=== PATIENT | female | born 1990 | race Caucasian/White ===

== ENCOUNTER 2022-08-04 09:57 | Inpatient (IN) ==
[2022-08-04] MEDS ORDERED: miSOPROStoL 200 MCG TABLET RECTAL PRN (10:23)
[2022-08-04] MEDS ORDERED: OXYTOCIN/LR 20 UNIT/1,000 ML BAG IV ONE ×2 (10:23→20:55)
[2022-08-04] MEDS ORDERED: CARBOPROST TROMETHAMINE 250 MCG/ML AMP IM PRN (10:23)
[2022-08-04] MEDS ORDERED: METHYLERGONOVINE 0.2 MG/1 ML AMP IM PRN (10:23)
[2022-08-04] MEDS ORDERED: TRANEXAMIC ACID 1,000 MG in SODIUM CHLORIDE 0.9% 100 ML IV PRN (10:23)
[2022-08-04] MEDS ORDERED: ONDANSETRON 4 MG/2 ML VIAL IV PRN ×2 (10:23→20:55)
[2022-08-04] MEDS ORDERED: LACTATED RINGERS 1,000 ML IV ONE (10:23)
[2022-08-04] MEDS ORDERED: BUTORPHANOL 2 MG/ML VIAL IV PRN (10:23)
[2022-08-04 11:18] LABS: Basophils % 0.3 % (0.0-0.8); Eosinophils # 0.1 10*3/uL (0.0-0.87); Eosinophils % 0.9 % (0.00-10.9); Hematocrit 36.9 VOL% (35.7-47.0); Hemoglobin 12.4 GM/DL (12.0-16.0); Immature Granulocytes % 0.6 %; Immature Granulocytes Absolute 0.05 #; Lymphocytes # 2.3 10*3/uL (1.4-4.0); Lymphocytes % 27.1 % (21.3-54.2); Mean Corpuscular HGB Conc 33.6 GM/DL (32-36); Mean Corpuscular Volume 88.5 FL (87-102); Monocytes # 0.5 10*3/uL (0.11-0.8); Monocytes % 5.7 % (1.7-12.7); Neutrophils % 65.4 % (38.7-73.9); Platelet Count 207 T/CUMM (130-400); Red Blood Count 4.17 MC/CUMM (3.8-5.5); Red Cell Distribution Width 14.5 % (9.3-17.3); White Blood Count 8.64 T/CUMM (4-12)
[2022-08-04 11:51] LABS: Alanine Aminotransferase 17 U/L (13-56); Albumin 2.6 G/DL (3.4-5.0); Alkaline Phosphatase 166 U/L (45-117); Aspartate Amino Transferase 16 U/L (0-37); Bilirubin,Total < 0.39 MG/DL (0.20-1.00); Blood Urea Nitrogen 10 MG/DL (7-18); Calcium 8.6 MG/DL (8.5-10.1); Carbon Dioxide 17 MMOL/L (21-32); Chloride 111 MMOL/L (98-107); Glucose 100 MG/DL (74-106); Osmolality,Calculated 277.4 MOS/KG (273-304); Potassium 3.7 MMOL/L (3.5-5.1); Sodium 140 MMOL/L (136-145); Total Protein 6.4 G/DL (6.4-8.2)
[2022-08-04] MEDS: LACTATED RINGERS 1,000 ML IV SCH ×2 (12:24→15:11)
[2022-08-04] MEDS ORDERED: FAMOTIDINE 20 MG/2 ML VIAL IV ONE (13:01)
[2022-08-04] MEDS ORDERED: hydrOXYzine HCL 25 MG/1 ML VIAL IM PRN (13:01)
[2022-08-04] MEDS ORDERED: CITRIC ACID/SODIUM CITRATE 30 ML UDCUP PO ONE (13:01)
[2022-08-04] MEDS ORDERED: ONDANSETRON 4 MG/2 ML VIAL IV ONE (13:01)
[2022-08-04] MEDS ORDERED: ePHEDrine 50 MG/ML VIAL IV PRN (13:01)
[2022-08-04] MEDS ORDERED: NALOXONE 0.4 MG/ML VIAL IV PRN (13:01)
[2022-08-04] MEDS ORDERED: PROMETHAZINE 25 MG/1 ML VIAL IM ONE (13:01)
[2022-08-04] MEDS ORDERED: diphenhydrAMINE 50 MG/1 ML VIAL IV PRN ×2 (13:01)
[2022-08-04] MEDS ORDERED: fentaNYL 2 MCG/ROPIV 0.2% EPID 100 ML EPIDURAL SCH (13:30)
[2022-08-04] MEDS ORDERED: OXYTOCIN/D5LR 20 UNIT/1,000 ML PREMIX IV SCH (15:00)
[2022-08-04 15:07] LABS: Bilirubin,Urine Negative (Negative); Blood, Urine Negative (Negative); Glucose,Urine (UA) Negative (Negative); Ketones,Urine Negative (Negative); Nitrite,Urine Negative (Negative); Protein,Urine Negative (Negative); Urine Appearance Clear (Clear); Urine Color Yellow (Yellow); Urine Urobilinogen 0.2 eU/dL (<2.0)
[2022-08-04 15:10] LABS: Squamous Epithelial Cell,Urine Occasional /HPF (0-10)
[2022-08-04] MEDS ORDERED: OXYTOCIN/LR 20 UNIT/1,000 ML BAG IV SCH (15:30)
[2022-08-04] MEDS ORDERED: SODIUM CHLORIDE 0.9% 250 ML IV ONE (15:41)
[2022-08-04] MEDS ORDERED: miSOPROStoL 200 MCG TABLET ONE (19:26)
[2022-08-04] MEDS ORDERED: TRANEXAMIC ACID 1,000 MG/10 ML VIAL ONE (19:26)
[2022-08-04] MEDS ORDERED: SODIUM CHLORIDE 0.9% 0 ML IV ONE (19:26)
[2022-08-04] MEDS ORDERED: METHYLERGONOVINE 0.2 MG/1 ML AMP ONE (19:27)
[2022-08-04] MEDS ORDERED: CARBOPROST TROMETHAMINE 250 MCG/ML AMP IM ONE (19:27)
[2022-08-04] MEDS ORDERED: LANOLIN 50% CREAM 0.3 OZ TUBE TOP PRN (20:55)
[2022-08-04] MEDS ORDERED: HYDROCORTISONE 2.5% RECTAL CREAM 30 GM TUBE TOP PRN (20:55)
[2022-08-04] MEDS ORDERED: ACETAMINOPHEN 325 MG TABLET PO PRN (20:55)
[2022-08-04] MEDS ORDERED: BISACODYL 10 MG SUPP RECTAL PRN (20:55)
[2022-08-04] MEDS ORDERED: RHO(D) IMMUNE GLOBULIN 300 MCG SYRINGE IM ONE (20:55)
[2022-08-04] MEDS ORDERED: BENZOCAINE 20%/MENTHOL 0.5% SPRAY 56 GM CAN TOP PRN (20:55)
[2022-08-04] MEDS ORDERED: MEASLES/MUMPS/RUBELLA VACCINE 0.5 ML VIAL SUBCUT ONE (20:55)
[2022-08-04] MEDS ORDERED: DIPH/TET/ACEL PERT BOOSTER VACCINE 0.5 ML VIAL IM ONE (20:55)
[2022-08-04] MEDS ORDERED: WITCH HAZEL PADS 100/JAR TOP PRN (20:55)
[2022-08-04] MEDS ORDERED: oxyCODONE/ACETAMINOPHEN 5-325 MG TABLET PO PRN ×2 (20:55)
[2022-08-04 21:03] LABS: Cord Arterial Blood HCO3 19.8 MMOL/L
[2022-08-04 21:05] LABS: Cord Venous Blood HCO3 18.3 MMOL/L; Cord Venous Blood PCO2 58.1 MMHG; Cord Venous Blood PO2 < 17
[2022-08-05] MEDS: IBUPROFEN 800 MG TABLET PO PRN ×2 (00:10→18:23)
[2022-08-05] MEDS: DOCUSATE SODIUM 100 MG CAPSULE PO SCH ×3 (00:10→22:20)
[2022-08-05 05:24] LABS: Basophils % 0.3 % (0.0-0.8); Eosinophils % 0.3 % (0.00-10.9); Hematocrit 33.2 VOL% (35.7-47.0); Hemoglobin 10.9 GM/DL (12.0-16.0); Immature Granulocytes % 0.6 %; Immature Granulocytes Absolute 0.07 #; Lymphocytes # 1.9 10*3/uL (1.4-4.0); Lymphocytes % 16.8 % (21.3-54.2); Mean Corpuscular HGB Conc 32.8 GM/DL (32-36); Mean Corpuscular Volume 88.5 FL (87-102); Mean Platelet Volume 10.1 FL (9.6-12.0); Monocytes # 0.7 10*3/uL (0.11-0.8); Monocytes % 5.6 % (1.7-12.7); Neutrophils % 76.4 % (38.7-73.9); Platelet Count 188 T/CUMM (130-400); Red Blood Count 3.75 MC/CUMM (3.8-5.5); Red Cell Distribution Width 14.4 % (9.3-17.3); White Blood Count 11.57 T/CUMM (4-12)
[2022-08-05] MEDS: CITALOPRAM 20 MG TABLET PO SCH (10:37)
[2022-08-05] MEDS ORDERED: MAGNESIUM HYDROXIDE SUSP 30 ML UDCUP PO PRN (22:22)
[2022-08-06 07:28] VITALS: BP 117/55
[2022-08-06] MEDS ORDERED: MULTIVITAMIN (PRENATAL) TABLET PO SCH (09:00)
[2022-08-06] MEDS: DOCUSATE SODIUM 100 MG CAPSULE PO SCH (09:03)
[2022-08-06] MEDS: CITALOPRAM 20 MG TABLET PO SCH (09:04)
== END 2022-08-06 11:25 | disposition home or self-care (01) | DRG 807 ==
LOC: N.LDOUT 09:57 → N.LD 09:59 → N.OB 23:28
PROVIDERS: ADMIT Obstetrics & Gynecology; ATTEND Obstetrics & Gynecology